=== PATIENT | female | born 1955 | race Caucasian/White ===

== ENCOUNTER 2017-03-20 16:25 | Emergency (ER) | payer MEDICAID ==
[2017-03-20] MEDS ORDERED: Sodium Chloride 0.9% 10 ML Syringe FLUSH PRN (17:46)
[2017-03-20] MEDS ORDERED: Sodium Chloride 0.9% 1,000 ML IV SCH ×2 (18:00→19:30)
--- NOTE | 2017-03-20 18:01 | EDM.PDOC ---
ED HPI GENERAL MEDICAL PROBLEM - General Chief Complaint: Cardiovascular Problem Stated Complaint: HIGH BLOOD PRESSURE Time Seen by Provider: 03/20/17 17:55 Source of Information: Reports: Patient History Limitations: Reports: No Limitations - History of Present Illness INITIAL COMMENTS - FREE TEXT/NARRATIVE: Patient presents to ER today after being instructed to report to ER due to blood pressure reading of 188/108 in [facility]. Montserrat presented to the clinic for complaints of diarrhea x 3 weeks. Onset Date: 02/27/17 (Diarrhea onset) Duration: Week(s):, Other (Onset elevated blood pressure without known history of hypertension noted today in clinic setting. 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: Reports: Psychiatric History: Reports: Depression Endocrine/Metabolic History: Reports: Hypothyroidism - Past Surgical History Cardiovascular Surgical History: Reports: Carotid Endarterectomy GI Surgical History: Reports: Colonoscopy Female Surgical History: Reports: Section Social & Family History - Tobacco Use Smoking Status *Q: Never Smoker - Recreational Drug Use Recreational Drug Use: No ED ROS GENERAL - Review of Systems Review Of Systems: See Below Constitutional: Denies: Fever, Chills, Malaise, Weakness, Fatigue, Night Sweats , Diaphoresis, Decreased Appetite HEENT: Reports: No Symptoms Respiratory: Denies: Shortness of Breath, Wheezing, Cough, Sputum Cardiovascular: Reports: Blood Pressure Problem. Denies: Chest Pain, Dyspnea on Exertion, Edema, Lightheadedness, Orthopnea, Palpitations, PND, Syncope Endocrine: Reports: No Symptoms GI/Abdominal: Reports: Diarrhea, Distension, Mucous in Stool, Stool Incontinence , Other (She denies use of OTC medications to assist with diarrhea. ). Denies : Abdominal Pain, Anorexia, Black Stool, Bloody Stool, Hematemesis, Hematochezia , Vomiting : Denies: Discharge, Dysuria, Flank Pain, Frequency, Hematuria, Incontinence, Pain, Urgency Musculoskeletal: Reports: No Symptoms Skin: Denies: Bruising, Pruritis, Rash, Erythema, Wound Neurological: Reports: Headache, Other (Patient complains of headache off and on , not severe enough for her to take OTC medication. ). Denies: Weakness Psychiatric: Reports: No Symptoms Hematologic/Lymphatic: Reports: No Symptoms Immunologic: Reports: No Symptoms Free Text/Narrative/Comment: [place] of town, has well water supplies. She denies recent travel or exposure to viral illnesses. 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 Montserrat states she has not slept as much the past three weeks due to involuntary stool incontinence at night. She also reports difficult vaginal delivery. She denies history or issue of diarrhea in past. ED EXAM, GENERAL - Physical Exam Exam: See Below Exam Limited By: No Limitations General Appearance: Alert, WD/WN, No Apparent Distress Eye Exam: Bilateral Eye: Normal Inspection, PERRL Ears: Normal External Exam, Normal Canal, Hearing Grossly Normal, Normal TMs Ear Exam: Bilateral Ear: Auricle Normal, Canal Normal, TM normal Nose: Normal Inspection, Normal Mucosa, No Blood Throat/Mouth: Normal Inspection, Normal Lips, Normal Teeth, Normal Gums, Normal Oropharynx, Normal Voice, No Airway Compromise Head: Atraumatic, Normocephalic Neck: Normal Inspection, Supple, Non-Tender, Full Range of Motion Respiratory/Chest: No Respiratory Distress, Lungs Clear, Normal Breath Sounds, No Accessory Muscle Use, Chest Non-Tender Cardiovascular: Normal Peripheral Pulses, Regular Rate, Rhythm, No Edema, No Gallop, No Murmur, No Rub Peripheral Pulses: 2+: Radial (L), Radial (R), Dorsalis Pedis (L), Dorsalis Pedis (R) GI/Abdominal: Normal Bowel Sounds, Soft, Non-Tender, No Mass, Distended, Tender. No: Guarding, Rigid, Rebound Back Exam: Normal Inspection, Full Range of Motion. No: CVA Tenderness (R), CVA Tenderness (L) Extremities: Normal Inspection, Normal Range of Motion, Non-Tender, No Pedal Edema, Normal Capillary Refill Neurological: Alert, Oriented, CN II-XII Intact, Normal Cognition, Normal Gait, Normal Reflexes Psychiatric: Normal Affect, Normal Mood Skin Exam: Warm, Dry, Intact, Normal Color, No Rash Lymphatic: No Adenopathy Course - Vital Signs Last Recorded V/S: Last Vital Signs Temp 36.1 C 03/20/17 17:12 Pulse 69 03/20/17 17:12 Resp 16 03/20/17 17:12 BP 143/85 H 03/20/17 20:57 Pulse Ox 95 03/20/17 17:12 - Orders/Labs/Meds Orders: Active Orders 24 hr Category Date Time Status Saline Lock Insert [OM.PC] Routine Oth 03/20/17 17:46 Ordered Labs: Laboratory Tests 03/20/17 03/20/17 03/20/17 Range/Units 18:08 18:48 18:48 WBC 7.6 (4.5-11.0) K/uL RBC 4.07 (3.30-5.50) M/uL Hgb 12.2 (12.0-15.0) g/dL Hct 36.8 (36.0-48.0) % MCV 90 (80-98) fL MCH 30 (27-31) pg MCHC 33 (32-36) % Plt Count 268 (150-400) K/uL Neut % (Auto) 51 (36-66) % Lymph % (Auto) 39 (24-44) % Gila % (Auto) 7 H (2-6) % Eos % (Auto) 3 (2-4) % Baso % (Auto) 1 (0-1) % Sodium 142 (140-148) mmol/L Potassium 4.1 (3.6-5.2) mmol/L Chloride 104 (100-108) mmol/L Carbon Dioxide 28 (21-32) mmol/L Anion Gap 9.9 (5.0-14.0) mmol/L BUN 9 (7-18) mg/dL Creatinine 0.9 (0.6-1.0) mg/dL Est Cr Clr Drug Dosing 49.53 mL/min Estimated GFR (MDRD) > 60 (>60) Glucose 86 (74-106) mg/dL Calcium 8.8 (8.5-10.1) mg/dL Total Bilirubin 0.3 (0.2-1.0) mg/dL AST 22 (15-37) U/L ALT 39 (12-78) U/L Alkaline Phosphatase 91 (46-116) U/L Total Protein 7.4 (6.4-8.2) g/dL Albumin 3.7 (3.4-5.0) g/dL Globulin 3.7 H (2.3-3.5) g/dL Albumin/Globulin Ratio 1.0 L (1.2-2.2) TSH, Ultra Sensitive (0.358-3.740) uIU/mL Urine Color Yellow Urine Appearance Clear Urine pH 7.0 (4.5-8.0) Ur Specific Pratt 1.010 (1.008-1.030) Urine Protein Negative (NEGATIVE) mg/dL Urine Glucose (UA) Normal (NEGATIVE) mg/dL Urine Ketones Negative (NEGATIVE) mg/dL Urine Occult Blood Negative (NEGATIVE) Urine Nitrite Negative (NEGATIVE) Urine Bilirubin Negative (NEGATIVE) Urine Urobilinogen Normal (NORMAL) mg/dL Ur Leukocyte Esterase Negative (NEGATIVE) Urine RBC Not seen (0-5) Urine WBC 0-5 (0-5) Ur Epithelial Cells Rare Amorphous Sediment Not seen Urine Bacteria Rare Urine Mucus Not seen 03/20/17 Range/Units 20:41 WBC (4.5-11.0) K/uL RBC (3.30-5.50) M/uL Hgb (12.0-15.0) g/dL Hct (36.0-48.0) % MCV (80-98) fL MCH (27-31) pg MCHC (32-36) % Plt Count (150-400) K/uL Neut % (Auto) (36-66) % Lymph % (Auto) (24-44) % Gila % (Auto) (2-6) % Eos % (Auto) (2-4) % Baso % (Auto) (0-1) % Sodium (140-148) mmol/L Potassium (3.6-5.2) mmol/L Chloride (100-108) mmol/L Carbon Dioxide (21-32) mmol/L Anion Gap (5.0-14.0) mmol/L BUN (7-18) mg/dL Creatinine (0.6-1.0) mg/dL Est Cr Clr Drug Dosing mL/min Estimated GFR (MDRD) (>60) Glucose (74-106) mg/dL Calcium (8.5-10.1) mg/dL Total Bilirubin (0.2-1.0) mg/dL AST (15-37) U/L ALT (12-78) U/L Alkaline Phosphatase (46-116) U/L Total Protein (6.4-8.2) g/dL Albumin (3.4-5.0) g/dL Globulin (2.3-3.5) g/dL Albumin/Globulin Ratio (1.2-2.2) TSH, Ultra Sensitive 2.630 (0.358-3.740) uIU/mL Urine Color Urine Appearance Urine pH (4.5-8.0) Ur Specific Pratt (1.008-1.030) Urine Protein (NEGATIVE) mg/dL Urine Glucose (UA) (NEGATIVE) mg/dL Urine Ketones (NEGATIVE) mg/dL Urine Occult Blood (NEGATIVE) Urine Nitrite (NEGATIVE) Urine Bilirubin (NEGATIVE) Urine Urobilinogen (NORMAL) mg/dL Ur Leukocyte Esterase (NEGATIVE) Urine RBC (0-5) Urine WBC (0-5) Ur Epithelial Cells Amorphous Sediment Urine Bacteria Urine Mucus 1840 Lab in to draw blood Lab work reviewed. Meds: Medications Discontinued Medications Generic Name Dose Route Start Last Admin Trade Name Freq PRN Reason Stop Dose Admin Sodium Chloride 1,000 mls @ 1,000 mls/hr 03/20/17 18:00 03/20/17 18:31 Normal Saline IV 1,000 mls/hr ASDIRECTED QUENTIN Administration Sodium Chloride 1,000 mls @ 500 mls/hr 03/20/17 19:30 03/20/17 19:37 Normal Saline IV 500 mls/hr ASDIRECTED QUENTIN Administration Sodium Chloride 10 ml 03/20/17 17:46 03/20/17 18:52 Saline Flush FLUSH 10 ml ASDIRECTED PRN Administration Keep Vein Open - Re-Assessments/Exams Free Text/Narrative Re-Assessment/Exam: 03/20/17 20:32 Patient blood pressure decreased after IV fluids. Free Text/Narrative Re-Assessment/Exam: 03/20/17 20:43 TSH pending. Patient will be notified of results and any change to her current medication if needed. Discussed ER course, reviewed lab work. Patient in agreement with plan. Free Text/Narrative Re-Assessment/Exam: 03/21/17 00:19 Patient notified of TSH prior to discharge. No changes to medication management. Departure - Departure Time of Disposition: 20:44 Disposition: Home, Self-Care 01 Preliminary Cause of *Q: sepsis & multi system organ failure Condition: fair Clinical Impression: Dehydration, moderate, Hypertension, Diarrhea Instructions: Diarrhea, Adult, Hypertension, Dehydration, Adult Referrals: Norma Jacob CNM [Primary Care Provider] - Forms: ED Department Discharge Additional Instructions: You were treated for dehydration due to diarrhea for three weeks today. Your blood pressure came down nicely after IV fluid administration. Your lab work was unremarkable today. The TSH is pending, you will be notified if your TSH is abnormal and there is any need to adjust your thyroid medication. Keep yourself hydrated with plenty of good fluids. Try to eat a high fiber diet with plenty of vegetables. Bring in a stool sample as soon as you are able, this will help to determine if you have a bacterial, viral or parasitic infection. A stool study takes several days, you will be notified of the results within 7 to 10 days. If you have not been notified, please contact the lab here at the hospital or your primary care provider. Trying to decrease personal stress and caffeine can sometimes help with diarrhea. You may also try use of a probiotic such as (Floragen 3). You may also want to consider tracking/recording the food you eat to see if there is anything that makes your diarrhea worse. Over the counter creams such as zinc oxide (desetin night cream) or calmoseptine can help protect sensitive skin. They are best used, one or the other, mixed with petroleum/vaseline at a 50:50 ratio and applied to sensitive areas as needed. Follow up with your primary care provider by the end of the week for a blood pressure check and next week for a health visit. Return at any time to the ER for worsening of symptoms, fever, chills, or bloody stool. - My Orders Last 24 Hours: My Active Orders 03/20/17 17:46 Saline Lock Insert [OM.PC] Routine - Assessment/Plan Last 24 Hours: My Active Orders 03/20/17 17:46 Saline Lock Insert [OM.PC] Routine Assessment:: Hypertension secondary to dehydration related to diarrhea for 3 weeks. Plan: Patient treated for dehydration due to diarrhea for three weeks today. Her blood pressure came down nicely after IV fluid administration. Lab work was unremarkable today. The TSH is pending, she will be notified of TSH and any need to adjust thyroid medication. She was instructed to: Keep hydrated with plenty of good fluids. Try to eat a high fiber diet with plenty of vegetables. Bring in a stool sample as soon as possible to help determine if a bacterial, viral or parasitic infection is present. A stool study takes several days, she will be notified of the results within 7 to 10 days. If she has not been notified, she can contact the lab here at the hospital or her primary care provider. Trying to decrease personal stress and caffeine can sometimes help with diarrhea. She can also try use of a probiotic such as (Floragen 3). She may also want to consider tracking/recording the food you eat to see if there is anything that makes her diarrhea worse. Over the counter creams such as zinc oxide (desetin night cream) or calmoseptine can help protect sensitive skin. They are best used, one or the other, mixed with petroleum/vaseline at a 50:50 ratio and applied to sensitive areas as needed. Follow up with her primary care provider by the end of the week for a blood pressure check and next week for a health visit. Return at any time to the ER for worsening of symptoms, fever, chills, or bloody stool.
[2017-03-20 20:57] VITALS: BP 143/85
== END 2017-03-20 21:35 | disposition home or self-care (01) ==
LOC: JP.ED 16:25
DX: E86.0 Dehydration (principal); I10 Essential (primary) hypertension; R19.7 Diarrhea, unspecified; E03.9 Hypothyroidism, unspecified; E78.00 Pure hypercholesterolemia, unspecified; F32.9 Major depressive disorder, single episode, unspecified; Z98.890 Other specified postprocedural states; Z79.82 Long term (current) use of aspirin; Z79.899 Other long term (current) drug therapy; Z87.01 Personal history of pneumonia (recurrent)
CPT/HCPCS: 36415; 80053; 81001; 84443; 85025; 96360; 96361; 99284; J7040; J7050

== ENCOUNTER 2023-11-17 06:34 | Day surgery (SDC) | payer MEDICARE ==
[2023-11-17] MEDS: Sodium Chloride 0.9% 1,000 ML IV SCH (07:22)
[2023-11-17] MEDS ORDERED: Propofol 200 MG/20 ML SDV ONE (07:26)
[2023-11-17] MEDS ORDERED: fentaNYL 100 MCG/2 ML SDV ONE (07:26)
[2023-11-17 08:43] VITALS: BP 149/69; PULSE 68
== END 2023-11-17 08:50 | disposition home or self-care (01) ==
LOC: JP.SDS 06:34
PROVIDERS: ATTEND Surgery
DX: K22.89 Other specified disease of esophagus (principal); K21.9 Gastro-esophageal reflux disease without esophagitis; I10 Essential (primary) hypertension; J45.909 Unspecified asthma, uncomplicated
CPT/HCPCS: 88305; J2704; J3010; J7030